=== PATIENT | male | born 1975 | race Hispanic/Latino ===

== ENCOUNTER 2020-11-24 07:40 | Emergency (ER) | payer OTHER ==
[~2020-11-24] VITALS: Ht 180.3 cm; Wt 99.8 kg
[2020-11-24] MEDS ORDERED: PEPCID40 MG PO (08:24)
[2020-11-24] MEDS ORDERED: ZINC220 M1 PO (08:25)
[2020-11-24] MEDS ORDERED: ZITHROMAX500 MG PO (08:26)
[2020-11-24] MEDS ORDERED: ASPIRIN ADULT325 MG PO (08:26)
[2020-11-24] MEDS ORDERED: VITAMIN D35000 UNI1 PO (08:28)
[2020-11-24] MEDS ORDERED: VITAMIN C1000 MG PO (08:29)
[2020-11-24] MEDS ORDERED: IVER3TAB PO (08:31)
[2020-11-24] MEDS ORDERED: IPRAAER INH (08:31)
[2020-11-24 08:33] LABS: POTASSIUM 3.6 mmol/L (3.6-5.2); SODIUM 138 mmol/L (136-145)
[2020-11-24 08:34] LABS: PLATELET COUNT 266 K/uL (142-355)
[2020-11-24] MEDS ORDERED: MELATONIN1 MG PO (08:34)
[2020-11-24] MEDS ORDERED: BUDE1AER5 INH (08:34)
[2020-11-24] MEDS ORDERED: ADDERALL7.5 MG PO (08:36)
[2020-11-24 15:45] VITALS: BP 163/79; TEMP 99.7
== END 2020-11-24 15:45 | disposition still patient (30) ==
LOC: ED 07:54
PROVIDERS: Emergency Medicine Emergency Medical Services
DX: R06.09 Other forms of dyspnea (principal); J12.82 Pneumonia due to coronavirus disease 2019; U07.1 COVID-19
CPT/HCPCS: 36415; 36600; 80053; 82728; 82805; 83605; 83735; 84484; 85027; 85379; 85610; 86140; 87040; 87502; 87635; 87651; 93005; 94760; 96360; 96361; 96365; 96366; 96375; 99285; J1956; J2930; Q9963; U0003